=== PATIENT | male | born 1960 | race Caucasian/White ===

== ENCOUNTER → 2024-06-13 08:29 | Outpatient (REF) | payer OTHER, SELFPAY | LOC: RAD 08:29 | PROVIDERS: ATTENDING PHYSICIAN Family Medicine | DX: R29.890 Loss of height (principal) | CPT/HCPCS: 77080 ==

== ENCOUNTER → 2025-01-17 07:48 | Outpatient (REF) | payer OTHER, SELFPAY | LOC: HWRAD 07:48 | PROVIDERS: ATTENDING PHYSICIAN Orthopaedic Surgery; FAMILY PHYSICIAN Family Medicine | DX: M25.572 Pain in left ankle and joints of left foot (principal) | CPT/HCPCS: 73700 ==

== ENCOUNTER → 2025-01-22 15:24 | Outpatient (REF) | payer OTHER, SELFPAY | LOC: RCS 15:24 | PROVIDERS: ATTENDING PHYSICIAN Student in an Organized Health Care Education/Training Program; FAMILY PHYSICIAN Family Medicine | DX: Z01.818 Encounter for other preprocedural examination (principal) | CPT/HCPCS: 93005 ==

== ENCOUNTER 2025-04-02 11:47 | Outpatient (RCR) | payer OTHER, SELFPAY | END 2025-04-02 23:59 | disposition home or self-care (01) | LOC: RPT 11:47 | PROVIDERS: ATTENDING PHYSICIAN Student in an Organized Health Care Education/Training Program; FAMILY PHYSICIAN Family Medicine | DX: S82.875A Nondisplaced pilon fracture of left tibia, initial encounter for closed fracture (principal); Z47.89 Encounter for other orthopedic aftercare (principal); Z73.6 Limitation of activities due to disability; S82.875D Nondisplaced pilon fracture of left tibia, subsequent encounter for closed fracture with routine healing; M62.81 Muscle weakness (generalized); V20.09 Other motorcycle driver injured in collision with pedestrian or animal in nontraffic accident | CPT/HCPCS: 97110; 97116; 97140; 97162 ==

== ENCOUNTER 2025-05-07 08:27 | Outpatient (RCR) | payer OTHER, SELFPAY | END 2025-05-07 23:59 | disposition home or self-care (01) | LOC: RPT 08:27 | PROVIDERS: ATTENDING PHYSICIAN Student in an Organized Health Care Education/Training Program; FAMILY PHYSICIAN Family Medicine | DX: Z47.89 Encounter for other orthopedic aftercare (principal); S82.875D Nondisplaced pilon fracture of left tibia, subsequent encounter for closed fracture with routine healing; Z73.6 Limitation of activities due to disability; M62.81 Muscle weakness (generalized); V20.09 Other motorcycle driver injured in collision with pedestrian or animal in nontraffic accident | CPT/HCPCS: 97010; 97110; 97112; 97116; 97140; 97530 ==